=== PATIENT | female | born 1965 | race Caucasian/White ===

== ENCOUNTER 2025-04-10 11:42 | Emergency (ER) | payer MEDICAID, OTHER ==
[~2025-04-10] VITALS: Ht 165.1 cm; Wt 81.8 kg
[2025-04-10 13:11] LABS: BASO # 0.0 10^3/uL (0.0-0.2); BASO % 0.5 % (0.0-1.0); EOS # 0.2 10^3/uL (0.0-0.5); EOS % 2.4 % (0.0-3.0); LYMPH # 2.7 10^3/uL (1.5-5.0); LYMPH % 32.5 % (24.0-44.0); MONO # 0.6 10^3/uL (0.0-0.8); MONO % 6.7 % (2.0-8.0); NEUTROPHILS # 4.7 10^3/uL (1.5-8.5); NEUTROPHILS % 57.5 % (36.0-66.0); PLATELET COUNT, AUTOMATED 247 10^3/uL (150-450)
[2025-04-10 13:24] LABS: INR 0.89
[2025-04-10 13:25] LABS: KETONE, URINE AUTO RFX TRACE mg/dL (NEGATIVE); MUCUS, URINE RFX SMALL (NEGATIVE); NITRITE, URINE AUTO RFX NEGATIVE (NEGATIVE); RBC, URINE AUTO RFX 4 /HPF (0-3); SQUAM EPITHELIAL CELL UR AURFX 7 /HPF (0-6); WBC, URINE AUTO RFX 1 /HPF (0-3)
[2025-04-10 13:38] LABS: LEUKOCYTE ESTERASE UR AUTO RFX 1+ (NEGATIVE)
[2025-04-10 13:42] LABS: ALT/SGPT 24 U/L (7.0-40); AST/SGOT 27 U/L (<34); CALCIUM LEVEL 9.3 MG/DL (8.5-10.1); CARBON DIOXIDE LEVEL 28 MMOL/L (20-31); CHLORIDE LEVEL 107 MMOL/L (98-107); CK-MB VALUE MASS 1.6 NG/ML (<3.6); CREATININE FOR GFR 0.59 MG/DL (0.55-1.30); GLOMERULAR FILTRATION RATE > 90.0 (>51); POTASSIUM SERUM 4.1 MMOL/L (3.5-5.1); SODIUM LEVEL 143 MMOL/L (136-145)
[2025-04-10 13:49] LABS: CPK CREATINE PHOSPHOKINASE 441 U/L (34-145); MB/CK RELATIVE INDEX 0.36 (< OR =4)
[2025-04-10] MEDS ORDERED: ISOVUE-370 76% 100 ML VIAL As Ordered ONE (14:20)
[2025-04-10 14:56] LABS: CK-MB VALUE MASS 1.5 NG/ML (<3.6)
[2025-04-10 15:05] LABS: CPK CREATINE PHOSPHOKINASE 414 U/L (34-145); MB/CK RELATIVE INDEX 0.36 (< OR =4)
[2025-04-10 15:57] VITALS: O2SAT 95
[2025-04-10 16:33] VITALS: BP 156/80; TEMP 98; O2SAT 94
== END 2025-04-10 16:36 | disposition home or self-care (01) ==
LOC: M ED 11:42
DX: R06.02 Shortness of breath (principal); F32.A Depression, unspecified; M54.50 Low back pain, unspecified; Z88.5 Allergy status to narcotic agent
CPT/HCPCS: 36415; 71045; 71275; 80048; 80076; 81001; 82550; 82553; 83880; 84484; 85025; 85610; 85730; 87088; 87486; 87581; 87633; 87798; 93005; 99284; Q9967